=== PATIENT | male | born 1965 | race African-American/Black ===

== ENCOUNTER 2017-12-04 05:57 | Day surgery (SDC) | payer OTHER ==
[2017-12-03 11:04] VITALS: BMI 35.0
--- NOTE | 2017-12-04 02:06 | HP ---
SHORT STAY HISTORY AND PHYSICAL DATE OF ADMISSION: 12/04/2017 HISTORY OF PRESENT ILLNESS: This is a 52-year-old male comes for colonoscopy for colon cancer screen ing. The patient has no specific GI symptoms. He has no family history of colon cancer. ALLERGIES: None. SOCIAL HISTORY: The patient does not smoke or drink alcohol. MEDICAL ILLNESSES: 1. Hypertension. 2. Coronary artery disease, status post stent placement in 2016. PHYSICAL EXAMINATION: VITAL SIGNS: Pulse is 70, blood pressure 130/80. HEENT: Conjunctivae clear. CARDIOVASCULAR: First and second heart sounds normal. LUNGS: Clear to auscultation. ABDOMEN: Soft to palpate. No organomegaly. No tenderness. No masses. EXTREMITIES: Reveal no edema. ADMITTING DIAGNOSIS: A 52-year-old male comes for a colonoscopy for colon cancer screening.
--- NOTE | 2017-12-04 11:15 | OP ---
DATE OF SURGERY: 12/04/2017 OPERATIVE PROCEDURE: Colonoscopy. PREOPERATIVE DIAGNOSIS: Colon cancer screening. POSTOPERATIVE DIAGNOSES: 1. Mild sigmoid diverticular disease. 2. Hemorrhoids. PROCEDURE IN DETAIL: The patient was placed on his left lateral position and was given sedation by A nesthesia Department. A rectal exam was done. The scope was advanced into the rectum. No lesions w ere felt on rectal exam. A Pentax video colonoscope was introduced into the rectum and advanced all the way into the cecum. The prep was good except for small amount of fecal residue in the right colo n. The mucosa appeared normal throughout the colon with normal vascular pattern. The appendiceal or ifice, ileocecal valve, and cecum, no pathology seen. The ascending colon, hepatic flexure, transver se colon, splenic flexure, descending colon, no pathology seen. The sigmoid colon shows mild diverti cular disease. Rectal hemorrhoids. DISCHARGE PLANNING: This is a 52-year-old -[place] male referred to me for a colonoscopy for colon cancer screening. He underwent colonoscopy and was found to have mild sigmoid diverticular di sease, hemorrhoids. DISCHARGE INSTRUCTIONS: 1. The patient advised to call me. He does have abdominal pain and hematochezia. 2. High-fiber diet. 3. Repeat colonoscopy in 10 years.
== END 2017-12-04 08:45 | disposition home or self-care (01) ==
LOC: SDC 05:57
PROVIDERS: ATTEND Internal Medicine Gastroenterology
PROC: 0DJD8ZZ Inspection of Lower Intestinal Tract, Via Natural or Artificial Opening Endoscopic (ICD-10-PCS; principal; 2017-12-04)
DX: Z12.11 Encounter for screening for malignant neoplasm of colon (principal); K64.9 Unspecified hemorrhoids; K57.30 Diverticulosis of large intestine without perforation or abscess without bleeding; I25.10 Atherosclerotic heart disease of native coronary artery without angina pectoris; I10 Essential (primary) hypertension; E78.5 Hyperlipidemia, unspecified; Z95.5 Presence of coronary angioplasty implant and graft; Z79.899 Other long term (current) drug therapy